=== PATIENT | female | born 1985 | race Caucasian/White ===

== ENCOUNTER 2017-02-10 20:01 | Inpatient (IN) | payer MEDICARE ==
[~2017-02-10 20:01] MED LIST: QUET200 PO
[2017-02-10 20:18] VITALS: BP 113/60; PULSE 86; RESP 16; TEMP 97; O2SAT 97
[2017-02-10 21:30] LABS: BACTERIA, URINE MANY /hpf; BLOOD, URINE NEG (NEG); COMMENT (UR) CULTURE INDICATED; CULTURE IF INDICATED CULTURE INDICATED; GLUCOSE,URINE NEG (NEG); KETONE, URINE NEG (NEG); MUCUS URINE MOD /lpf (OCC); NITRITE,URINE NEG (NEG); SQUAMOUS EPITHELIAL CELL URINE 7 /hpf (0-5); TRANSITIONAL EPI CELLS, URINE <1 /hpf; URINE COLOR YELLOW (YELLW/STRAW)
[2017-02-10 21:35] LABS: AMPHETAMINE, URINE NEG (NEG); BARBITURATES, URINE NEG (NEG); COCAINE, URINE POS (NEG)
[2017-02-10 22:21] VITALS: BP 108/60; PULSE 89; RESP 16; O2SAT 98
[2017-02-10 23:39] LABS: AUTOMATED NEUTROPHIL # 7.6 TH/MM3 (1.8-7.7); BASOPHIL % 0.2 % (0.0-2.0); EOSINOPHIL % 0.3 % (0.0-4.0); HEMO FLAGS DIFF FINAL; LYMPH % 21.1 % (9.0-44.0); LYMPHOCYTE # 2.3 TH/MM3 (1.0-4.8); MEAN CELL VOLUME 87.6 FL (80.0-100.0); MEAN CORPUSCULAR HEMOGLOBIN 29.5 PG (27.0-34.0); MEAN CORPUSCULAR HGB CONC 33.7 % (32.0-36.0); NEUT % 70.4 % (16.0-70.0); PLATELET COUNT 208 TH/MM3 (150-450); RED BLOOD COUNT 4.11 MIL/MM3 (4.00-5.30); RED CELL DISTRIBUTION WIDTH 13.9 % (11.6-17.2); WHITE BLOOD COUNT 10.8 TH/MM3 (4.0-11.0)
[2017-02-10] MEDS: CEPHALEXIN MONOHYDRATE 500 MG CAP PO SCH (23:45)
--- NOTE | 2017-02-10 23:45 | PD ---
HPI Chief Complaint: GI Complaint Time Seen by Provider: 22:01 Travel History International Travel<30 days: No Contact w/Intl Traveler<30days: No Traveled to known affect area: No History of Present Illness HPI 31-year-old female presents the emergency department for evaluation of rectal bleeding. At least this is what she told EMS as well as the nursing staff. On my initial evaluation the patient states she is having some rectal bleeding but denies any abdominal pain nausea vomiting diarrhea or weakness. She states that she is here because she wants to see psychiatry. Patient is adamantly refusing rectal exam at this time. She does have a long psychiatric history schizoaffective disorder. She will not expound her psychiatric concerns further with me. PFSH Past Medical History Hx Anticoagulant Therapy: No ADHD: Yes Autoimmune Disease: No Bipolar Disorder: Yes Anxiety: Yes Depression: Yes Chemotherapy: No Cerebrovascular Accident: No Diminished Hearing: No Endocrine: No Gastrointestinal Disorders: Yes GERD: Yes Genitourinary: Yes Immune Disorder: No Implanted Vascular Access Dvce: No Musculoskeletal: No Neurologic: No Reproductive: No Respiratory: No Immunizations Current: No Schizophrenia: Yes PNEUMOCCOCAL Vaccine (Year): 2 ?: Not Menopausal: No : 3 Para: 3 Past Surgical History Section: Yes (1) Gynecologic Surgery: Yes (C-SEC) Hysterectomy: No Social History Alcohol Use: No Tobacco Use: No Substance Use: Yes (+cocaine on admit) Allergies-Medications (Allergen,Severity, Reaction): Coded Allergies: Haldol (Verified Allergy, Severe, TONGUE SWELLS,DIFFICULTY SWALLOWING,JAW LOCKS, 02/10/17) Lamictal (Verified Allergy, Severe, 02/10/17) Paxil (Verified Allergy, Severe, 02/10/17) Reported Meds & Prescriptions Reported Meds & Active Scripts Active Quetiapine Fumarate 200 Mg Tab 400 Mg PO BID 15 Days Review of Systems Except as stated in HPI: all other systems reviewed are Neg Physical Exam Narrative GENERAL: Well-developed well-nourished no apparent distress. Sleeping soundly arouses easily. SKIN: Focused skin assessment warm/dry. HEAD: Atraumatic. Normocephalic. EYES: Pupils equal and round. No scleral icterus. No injection or drainage. ENT: No nasal bleeding or discharge. Mucous membranes pink and moist. NECK: Trachea midline. No JVD. CARDIOVASCULAR: Regular rate and rhythm. No murmur appreciated. RESPIRATORY: No accessory muscle use. Clear to auscultation. Breath sounds equal bilaterally. GASTROINTESTINAL: Abdomen soft, non-tender, nondistended. Hepatic and splenic margins not palpable. MUSCULOSKELETAL: No obvious deformities. No clubbing. No cyanosis. No edema. NEUROLOGICAL: Awake and alert. No obvious cranial nerve deficits. Motor grossly within normal limits. Normal speech. PSYCHIATRIC: Withdrawn, reluctant to give history. Data Data Last Documented VS Vital Signs Date Time Temp Pulse Resp B/P Pulse Ox O2 Delivery O2 Flow Rate FiO2 02/10/17 22:21 89 16 108/60 98 Room Air 02/10/17 20:18 97.0 Orders Ed Urine Pregnancytest Poc (02/10/17 20:55) Urinalysis - C+S If Indicated (02/10/17 20:55) Drug Screen, Random Urine (02/10/17 20:55) Urine Culture (02/10/17 20:55) Complete Blood Count With Diff (02/10/17 22:18) Comprehensive Metabolic Panel (02/10/17 22:18) Psych Screen (02/10/17 22:18) Alcohol (Ethanol) (02/10/17 22:18) Salicylates (Aspirin) (02/10/17 22:18) Tylenol (Acetaminophen) (02/10/17 22:18) Cephalexin (Keflex) (02/10/17 23:45) Labs Laboratory Tests Test 02/10/17 02/10/17 20:55 23:20 Urine Color YELLOW Urine Turbidity HAZY Urine pH 6.0 Urine Specific [place] 1.019 Urine Protein TRACE mg/dL Urine Glucose (UA) NEG mg/dL Urine Ketones NEG mg/dL Urine Occult Blood NEG Urine Nitrite NEG Urine Bilirubin NEG Urine Urobilinogen 8.0 MG/DL Urine Leukocyte Esterase LARGE Urine RBC 3 /hpf Urine WBC 80 /hpf Urine Squamous Epithelial 7 /hpf Cells Urine Transitional Epithelial <1 /hpf Cells Urine Bacteria MANY /hpf Urine Mucus MOD /lpf Microscopic Urinalysis Comment CULTURE INDICATED Urine Opiates Screen NEG Urine Barbiturates Screen NEG Urine Amphetamines Screen NEG Urine Benzodiazepines Screen NEG Urine Cocaine Screen POS Urine Cannabinoids Screen NEG White Blood Count 10.8 TH/MM3 Red Blood Count 4.11 MIL/MM3 Hemoglobin 12.1 GM/DL Hematocrit 36.0 % Mean Corpuscular Volume 87.6 FL Mean Corpuscular Hemoglobin 29.5 PG Mean Corpuscular Hemoglobin 33.7 % Concent Red Cell Distribution Width 13.9 % Platelet Count 208 TH/MM3 Mean Platelet Volume 8.1 FL Neutrophils (%) (Auto) 70.4 % Lymphocytes (%) (Auto) 21.1 % Monocytes (%) (Auto) 8.0 % Eosinophils (%) (Auto) 0.3 % Basophils (%) (Auto) 0.2 % Neutrophils # (Auto) 7.6 TH/MM3 Lymphocytes # (Auto) 2.3 TH/MM3 Monocytes # (Auto) 0.9 TH/MM3 Eosinophils # (Auto) 0.0 TH/MM3 Basophils # (Auto) 0.0 TH/MM3 CBC Comment DIFF FINAL Differential Comment Salicylates Level LESS THAN 1.7 MG/DL Sodium Level 141 MEQ/L Potassium Level 3.5 MEQ/L Chloride Level 107 MEQ/L Carbon Dioxide Level 24.0 MEQ/L Anion Gap 10 MEQ/L Blood Urea Nitrogen 8 MG/DL Creatinine 0.76 MG/DL Estimat Glomerular Filtration 90 ML/MIN Rate Random Glucose 99 MG/DL Calcium Level 7.9 MG/DL Total Bilirubin 0.4 MG/DL Aspartate Amino Transf LESS THAN 3 U/L (AST/SGOT) Alanine Aminotransferase 11 U/L (ALT/SGPT) Alkaline Phosphatase 88 U/L Total Protein 6.2 GM/DL Albumin 2.7 GM/DL Acetaminophen Level LESS THAN 2.0 MCG/ML Ethyl Alcohol Level LESS THAN 3 MG/DL MDM Medical Decision Making Medical Screen Exam Complete: Yes Emergency Medical Condition: Yes Differential Diagnosis Rectal bleeding, anemia, psychiatric illness. Narrative Course Patient 31-year-old female presents emergency department for rectal bleeding and evaluation for psychiatry. Patient is adamantly refusing a rectal exam at this time. I cannot force the patient to have a rectal exam and she declines. She would like to see psychiatry. She will not tell me why. She is here in a voluntary status at this time. She does not meet Garcia act criteria. She is medically stable for psychiatric evaluation and disposition. She does have incidental finding of urinary tract infection and I placed on Keflex 500 mg every 6 hours for 5 days. Patient has no physical exam findings warrant further emergent workup at this time. Diagnosis Primary Impression: Rectal bleeding Additional Impression: Schizoaffective disorder Condition: Stable Abram Delatorre MD Feb 10, 2017 23:45
[2017-02-10 23:59] LABS: ANION GAP 10 MEQ/L (5-15)
[2017-02-11 00:02] LABS: ACETAMINOPHEN LESS THAN 2.0 MCG/ML (10.0-30.0); ALKALINE PHOSPHATASE 88 U/L (45-117); ALT (GPT) 11 U/L (10-53); AST (GOT) LESS THAN 3 U/L (15-37); BLOOD UREA NITROGEN 8 MG/DL (7-18); CHLORIDE 107 MEQ/L (98-107); GLOMERULAR FILTRATION RATE 90 ML/MIN (>89); POTASSIUM 3.5 MEQ/L (3.5-5.1); SODIUM (NA) 141 MEQ/L (136-145); TOTAL BILIRUBIN ADULT 0.4 MG/DL (0.2-1.0)
[2017-02-11 00:58] VITALS: BP 107/60; PULSE 105; RESP 18; O2SAT 97
[2017-02-11 02:00] VITALS: BP 118/56; PULSE 90; RESP 18; O2SAT 96
[2017-02-11] MEDS: CEPHALEXIN MONOHYDRATE 500 MG CAP PO SCH ×3 (06:32→23:45)
[2017-02-11 06:42] VITALS: BP 119/61; PULSE 82; RESP 19; O2SAT 96
[2017-02-11] MEDS ORDERED: ACETAMINOPHEN 325 MG TAB PO ONE (09:45)
[2017-02-11 11:54] VITALS: BP 117/72; PULSE 86; RESP 18; O2SAT 95
[2017-02-11] MEDS ORDERED: OLANZapine 10 MG TAB PO ONE (12:00)
--- NOTE | 2017-02-11 15:31 | PD ---
History of Present Illness Chief Complaint: GI Complaint Time Seen by Provider: 15:00 Travel History International Travel<30 Days: No Contact w/Intl Traveler<30days: No Known affected area: No Legal Status Legal Status: Voluntary History of Present Illness: History of Present Illness HPI 31-year-old female with history of schizoaffective disorder as well as substance use disorder presents the emergency department on a voluntary basis for evaluation of rectal bleeding. She refused to allow ed providers to examine her and later states that she is here because she wants to see psychiatry. A psychiatric screen was ordered by ED. Patient's current toxicology is positive for cocaine . She has been monitored in J pod. She has episodes of yelling out " leave me alone". Patient has been medicated with Zyprexa but has continued to yell out at random times. Appears to be responding to internal stimuli. She is alert. She refuses to answer any questions at this time and states " I am here because I want to kill myself and I don't want to answer any questions because I am antisocial". Patient with a very angry affect. EMR is reviewed. this Patient is well known to [facility] psychiatric department. Her last psychiatric admission was in Jun 2016 under the care of Dr. Saravia. She has had a t least 10 previous admissions to [facility] . Lack of compliance with treatment after discharge as well as her continued substance use appear to significantly hinder her ability to maintain psychiatric stability. Remarks Patient will be placed under a BA at this time. PFSH Past Medical History Hx Anticoagulant Therapy: No ADHD: Yes Autoimmune Disease: No Bipolar Disorder: Yes Anxiety: Yes Depression: Yes Chemotherapy: No Cerebrovascular Accident: No Diminished Hearing: No Endocrine: No Gastrointestinal Disorders: Yes GERD: Yes Genitourinary: Yes Immune Disorder: No Implanted Vascular Access Dvce: No Musculoskeletal: No Neurologic: No Reproductive: No Respiratory: No Immunizations Current: No Schizophrenia: Yes PNEUMOCCOCAL Vaccine (Year): 2 ?: Not Menopausal: No : 3 Para: 3 Past Surgical History Section: Yes (1) Gynecologic Surgery: Yes (C-SEC) Hysterectomy: No Psychiatric History Psychiatric History Hx Psychiatric Treatment: PATIENT WAS LAST ADMITTED TO [facility] FROM 07/25/16 TO 08/05/16 FOR SCHIZOAFFECTIVE DISORDER. Possibly not following up with [facility] History of Inpatient Treatment: Yes (Multiple admissions) Guns or firearms in home: No Social History from record patient is homeless. No other information is obtained. Hx Alcohol Use: No Hx Tobacco Use: No Hx Substance Use: Yes Substance Use Type: Cocaine Other Substances Used: LONG HISTORY OF POLYSUBSTANCE ABUSE Hx of Substance Use Treatment: Yes Family Psychiatric History unable to obtain. Allergies-Medications (Allergen,Severity, Reaction): Coded Allergies: Haldol (Verified Allergy, Severe, TONGUE SWELLS,DIFFICULTY SWALLOWING,JAW LOCKS, 02/10/17) Lamictal (Verified Allergy, Severe, 02/10/17) Paxil (Verified Allergy, Severe, 02/10/17) Reported Meds & Prescriptions Reported Meds & Active Scripts Active Quetiapine Fumarate 200 Mg Tab 400 Mg PO BID 15 Days Review of Systems ROS Limitations: Uncooperative, Psychotic Exam Exam Limitations: Uncooperative, Refused, Psychotic Alert: Yes Mood: Agitated Affect: Other (angry ) Speech: Clear Eye Contact: None Memory Intact: Comment (unable to evaluate) Hallucinations: Auditory (reponding to internal stimuli) Delusions: Yes (posssibly but unable to evaluate) Suicidal: Ideation (reports she is sucidal ) Insight/Judgement poor. Impaired MDM Medical Decision Making Medical Record Reviewed: Yes Assessment/Plan 31 year old female with history of schizoaffective disorder as well as substance use disorder who presents to ED requesting an examination for complaints of rectal bleeding as well as requesting psychiatric evaluation. Patient has refused both physical exam as well as psychiatric exam. She has been responding to internal stimuli and has been yelling loudly while in J pod. At this time the patient will be placed under a bA and it is recommended that she be admitted to inpatient psychiatric unit for further evaluation, stabilization and initiation of psychiatric medications. Case discussed with Dr. Saravia for admission. Orders Ed Urine Pregnancytest Poc (02/10/17 20:55) Urinalysis - C+S If Indicated (02/10/17 20:55) Drug Screen, Random Urine (02/10/17 20:55) Urine Culture (02/10/17 20:55) Complete Blood Count With Diff (02/10/17 22:18) Comprehensive Metabolic Panel (02/10/17 22:18) Psych Screen (02/10/17 22:18) Alcohol (Ethanol) (02/10/17 22:18) Salicylates (Aspirin) (02/10/17 22:18) Tylenol (Acetaminophen) (02/10/17 22:18) Cephalexin (Keflex) (02/10/17 23:45) Diet Regular Basic (02/11/17 Breakfast) Diet Regular Basic (02/11/17 Lunch) Acetaminophen (Tylenol) (02/11/17 09:45) Olanzapine (Zyprexa) (02/11/17 12:00) Diet Regular Basic (02/11/17 Dinner) Results Vital Signs Date Time Temp Pulse Resp B/P Pulse Ox O2 Delivery O2 Flow Rate FiO2 02/11/17 11:54 86 18 117/72 95 Room Air 02/11/17 06:42 82 19 119/61 96 Room Air 02/11/17 02:00 90 18 118/56 96 Room Air 02/11/17 00:58 105 18 107/60 97 Room Air 02/10/17 22:21 89 16 108/60 98 Room Air 02/10/17 22:17 18 02/10/17 20:18 97.0 86 16 113/60 97 Laboratory Tests Test 02/10/17 02/10/17 20:55 23:20 Urine Opiates Screen NEG Urine Barbiturates Screen NEG Urine Amphetamines Screen NEG Urine Benzodiazepines Screen NEG Urine Cocaine Screen POS Urine Cannabinoids Screen NEG Urine Color YELLOW Urine Turbidity HAZY Urine pH 6.0 Urine Specific [place] 1.019 Urine Protein TRACE Urine Glucose (UA) NEG Urine Ketones NEG Urine Occult Blood NEG Urine Nitrite NEG Urine Bilirubin NEG Urine Urobilinogen 8.0 Urine Leukocyte Esterase LARGE Urine RBC 3 Urine WBC 80 Urine Squamous Epithelial 7 Cells Urine Transitional Epithelial <1 Cells Urine Bacteria MANY Urine Mucus MOD Microscopic Urinalysis Comment CULTURE INDICATED White Blood Count 10.8 Red Blood Count 4.11 Hemoglobin 12.1 Hematocrit 36.0 Mean Corpuscular Volume 87.6 Mean Corpuscular Hemoglobin 29.5 Mean Corpuscular Hemoglobin 33.7 Concent Red Cell Distribution Width 13.9 Platelet Count 208 Mean Platelet Volume 8.1 Neutrophils (%) (Auto) 70.4 Lymphocytes (%) (Auto) 21.1 Monocytes (%) (Auto) 8.0 Eosinophils (%) (Auto) 0.3 Basophils (%) (Auto) 0.2 Neutrophils # (Auto) 7.6 Lymphocytes # (Auto) 2.3 Monocytes # (Auto) 0.9 Eosinophils # (Auto) 0.0 Basophils # (Auto) 0.0 CBC Comment DIFF FINAL Differential Comment Salicylates Level LESS THAN 1.7 Sodium Level 141 Potassium Level 3.5 Chloride Level 107 Carbon Dioxide Level 24.0 Anion Gap 10 Blood Urea Nitrogen 8 Creatinine 0.76 Estimat Glomerular Filtration 90 Rate Random Glucose 99 Calcium Level 7.9 Total Bilirubin 0.4 Aspartate Amino Transf LESS THAN 3 (AST/SGOT) Alanine Aminotransferase 11 (ALT/SGPT) Alkaline Phosphatase 88 Total Protein 6.2 Albumin 2.7 Acetaminophen Level LESS THAN 2.0 Ethyl Alcohol Level LESS THAN 3 Date/Time Procedure Status Source Growth 02/10/17 20:55 Urine Culture - Preliminary Resulted Urine Clean Catch Group D Enterococcus Diagnosis Primary Impression: Schizoaffective disorder Additional Impressions: Rectal bleeding Substance use disorder Admitting Information Admitting Physician Requests: Admit Condition: Stable Problem Qualifiers Primary Impression: Schizoaffective disorder Qualified Code: F25.0 - Schizoaffective disorder, bipolar type Kaci Hall Feb 11, 2017 15:31
[2017-02-11] MEDS ORDERED: ALUMINUM/MAGNESIUM/SIMETH 30 ML CUP PO PRN (16:00)
[2017-02-11] MEDS ORDERED: diphenhydrAMINE HCL 50 MG CAP PO PRN (16:00)
[2017-02-11] MEDS ORDERED: ACETAMINOPHEN 325 MG TAB PO PRN (16:00)
[2017-02-11] MEDS ORDERED: MAGNESIUM HYDROXIDE SUSP 30 ML CUP PO PRN (16:00)
[2017-02-11] MEDS ORDERED: LORazepam 2 MG/ML VIAL ONE (17:45)
[2017-02-11] MEDS ORDERED: diphenhydrAMINE HCL 50 MG/ML VIAL ONE (17:45)
[2017-02-11] MEDS ORDERED: OLANZapine IM 10 MG VIAL IM ONE ×3 (17:45→22:00)
[2017-02-11] MEDS ORDERED: diphenhydrAMINE HCL 50 MG/ML VIAL IM ONE ×2 (18:15→22:00)
[2017-02-11] MEDS ORDERED: LORazepam 2 MG/ML VIAL IM ONE ×2 (18:15→22:00)
[2017-02-12] MEDS: CEPHALEXIN MONOHYDRATE 500 MG CAP PO SCH ×4 (05:45→23:45)
[2017-02-12] MEDS ORDERED: LORazepam 2 MG/ML VIAL ONE (10:11)
[2017-02-12] MEDS ORDERED: diphenhydrAMINE HCL 50 MG/ML VIAL ONE (10:11)
[2017-02-12] MEDS ORDERED: ZIPRASIDONE MESYLATE 20 MG VIAL IM STA (10:35)
--- NOTE | 2017-02-12 10:36 | HHI.HP ---
Provisional Diagnosis Admission Date Feb 11, 2017 at 15:51 [place] I. 1. Schizoaffective disorder, bipolar type, acute decompensation Rule out component of drug induced psychosis 2. Cocaine dependence [place] II. Deferred [place] V. GAF is 15 presently Certification of Person's Competence To Provide Express and Informed Consent I have personally examined Janine Gilliland , a person being served at [facility] on, Feb 12, 2017 10:36. Express and informed consent means consent voluntarily given in writing, by a competent person, after sufficient explanation and disclosure of the subject matter involved to enable the person to make a knowing and willful decision without any element of force, fraud, deceit, duress, or other form of constraint or coercion. This person is 18 years of age or older, is not now known to be incompetent to consent to treatment with a guardian advocate, and does not have a health care surrogate or proxy currently making medical treatment decisions. I have found this person to be one of the following: [] Competent to provide express and informed consent, as defined above, for voluntary admission to this facility and is competent to provide express and informed consent for treatment. He/she has the consistent capacity to make well reasoned, willful, and knowing decisions concerning his or her medical or mental health treatment. The person fully and consistently understands the purpose of the admission for examination/placement and is fully capable of personally exercising all rights [place] [x] Incompetent to provide express and informed consent to voluntary admission, and this is incompetent to provide express and informed consent to treatment. The person must be transferred to involuntary status and a petition for a guardian advocate filed with the Circuit Court. [] Refusing to provide express and informed consent to voluntary admission but is competent to provide express and informed consent for treatment. The person must be discharged or transferred to involuntary status. Form shall be completed within 24 hours of a person's arrival at the receiving facility and filed in the clinical record of each person: 1. Admitted on a voluntary basis 2. Permitted to provide express and informed consent to his/her own treatment 3. Allowed to transfer from involuntary to voluntary status 4. Prior to permitting a person to consent to his or her own treatment after having been previously found incompetent to consent to treatment. History of Present Illness Capacity: Lacks Capacity HPI Ms. Gilliland is a 31-year-old female with a history of schizoaffective disorder and cocaine use disorder who presented voluntarily to the emergency department with complaints of rectal bleeding but then refused examination. Patient was referred to the psychiatric nurse practitioner in the emergency department for psychiatric evaluation, and the nurse practitioner placed the patient under the Garcia act. Patient is well known to the psychiatric service here from multiple prior psychiatric admissions and ED visits. Reviewing the electronic medical record, I see the patient was admitted most recently under my care in June/July of last year, and she left AGAINST MEDICAL ADVICE at that time. Patient's urine toxicology is once again positive for cocaine on presentation here. Patient seen and examined with counselor. Chart reviewed. Case discussed with nursing staff who reports that the patient was acutely agitated yesterday requiring Zyprexa ETO. She remains agitated this morning. She can be heard screaming on the unit from the nursing station. On my evaluation, the patient presents as internally stimulated and psychomotor agitated. She screams that she wants to be sent to the [facility] because she can smoke there. Her thought process is fairly disorganized. She says that she came into the hospital because she was "bleeding to " but refuses evaluation for this problem now. She says "I'm homeless on the [address] and I gotta go somewhere." She rambles about "a or a black kid." Affect is intensely dysphoric. It is difficult to discern underlying delusional material because of her degree of thought disorder at this time.'s psychiatric interview is limited because of her degree of psychotic decompensation at this time. Patient becomes increasingly agitated during the course of the interview and resumes screaming loudly I have ordered her medicated with Geodon, Ativan and Benadryl ETO. I am unable to obtain any past psychiatric, family, chemical dependency or social history from the patient directly at this time because of her degree of psychiatric impairment. Review of Systems ROS Limitations: Uncooperative, Psychotic, Poor Historian Other Unable to obtain meaningful ROS because of degree of psychotic impairment Past Psych History Psychological trauma history Unable to obtain because of degree of psychiatric impairment Violence risk - others (6 mos) Elevated. Patient is acutely agitated. Violence risk - self (6 mos) Elevated. Patient is psychotic and unpredictable. Substance Abuse History Drugs/Alcohol past 12 months Patient has history of cocaine dependence and her urine toxicology is presently positive for cocaine. Past Family Social History Coded Allergies: Haldol (Verified Allergy, Severe, TONGUE SWELLS,DIFFICULTY SWALLOWING,JAW LOCKS, 02/10/17) Lamictal (Verified Allergy, Severe, 02/10/17) Paxil (Verified Allergy, Severe, 02/10/17) Past Medical History See electronic medical record Active Scripts Quetiapine Fumarate 200 Mg [id number] Mg PO BID 15 Days Ref 1 Prov:Shankar Saravia MD 08/05/16 Current Medications Medications (Trade) Dose Ordered Sig/Lisa Route Start Time Stop Time Status Last Admin (Keflex) 500 mg Q6H PO 02/10/17 23:45 02/11/17 10:02 (Benadryl) 50 mg HS PRN PO 02/11/17 16:00 (Tylenol) 650 mg Q4H PRN PO 02/11/17 16:00 (Milk Of Magnesia Liq) 30 ml DAILY PRN PO 02/11/17 16:00 (Mag-Al Plus Susp Liq) 30 ml Q6H PRN PO 02/11/17 16:00 Family History Unable to obtain Social History Unable to obtain Patient's Strengths (min. 2) In a monitored setting. Verbally fluent. Physical Exam Physical examination completed by ED provider. On my examination today, patient is disheveled but otherwise well-developed and in no acute physical distress. She has psychomotor agitated but otherwise no motoric abnormalities are noted. Laboratories and vital signs reviewed: Vital Signs Vital Signs Date Time Temp Pulse Resp B/P Pulse Ox O2 Delivery O2 Flow Rate FiO2 02/11/17 11:54 86 18 117/72 95 Room Air 02/10/17 20:18 97.0 Lab Results Item Value Date Time White Blood Count 10.8 TH/MM3 02/10/170 Hemoglobin 12.1 GM/DL 02/10/170 Platelet Count 208 TH/MM3 02/10/170 Sodium Level 141 MEQ/L 02/10/17 2320 Potassium Level 3.5 MEQ/L 02/10/17 2320 Chloride Level 107 MEQ/L 02/10/17 2320 Carbon Dioxide Level 24.0 MEQ/L 02/10/17 2320 Blood Urea Nitrogen 8 MG/DL 02/10/17 2320 Creatinine 0.76 MG/DL 02/10/170 Random Glucose 99 MG/DL 02/10/170 Estimat Glomerular Filtration Rate 90 ML/MIN 02/10/17 2320 Aspartate Amino Transf (AST/SGOT) LESS THAN 3 U/L L 02/10/17 2320 Alanine Aminotransferase (ALT/SGPT) 11 U/L 02/10/170 Alkaline Phosphatase 88 U/L 02/10/17 232 Urine Cocaine Screen POS H 02/10/172054 Urinalysis concerning for UTI and urine culture is growing out group D enterococcus with sensitivities pending. Mental Status Examination Patient is in hospital gown. She is disheveled. She is awake and alert and oriented to person and hospital at least. She is psychomotor agitated. Speech is rambling, inappropriately loud and somewhat pressured. Language and fund of knowledge are difficult to discern because of her degree of thought disorder. Mood and affect her intensely dysphoric. Thought process disorganized. Associations loose. Difficult to ascertain whether there is underlying delusional material. She is frankly internally stimulated. She does not verbalize any suicidal or homicidal ideation but is unreliable to contract for safety in her present state. Insight and judgment are poor. Assessment & Plan Problem List: (1) Schizoaffective disorder, bipolar type ICD Code: F25.0 (2) Cocaine dependence ICD Code: F14.20 Assessment & Plan This is a 31-year-old female with psychiatric history as detailed above admitted to the inpatient psychiatric unit under a Garcia act. On my examination today, patient appears to be experiencing a severe, psychotic decompensation, possibly with contributions from drug induced psychotic disorder from her cocaine use. She also appears to have a UTI. Given her degree of psychiatric decompensation, I trial court judge the patient presently requires psychiatric hospitalization for safety, observation and stabilization. Admit inpatient. Involuntary status. I have completed first opinion. Consult for second opinion. Request healthcare surrogate and guardian advocate. Consult to the hospitalist for management of patient's UTI and also to follow- up patient's presenting complaint of rectal bleeding if patient is willing to undergo examination. I will continue Cipro for the UTI as ordered pending sensitivities. Regarding the choice of antipsychotic, patient has a listed allergy to Haldol. Reviewing the chart it appears that she has had a poor response to Risperdal in the past and I don't suspect that her response to paliperidone would be much better. I think an agent with a corresponding long- acting injectable is desirable here. I will start Abilify 10 mg daily with plans to titrate to effect. Geodon as needed for agitation, Ativan as needed for anxiety, Cogentin as needed for EPS, Ambien as needed for sleep. Vitals every shift. Counselor to see. Disposition planning. Estimated length of stay : 7-9 days, longer if placement is necessary. Discharge Planning Pending psychiatric stabilization Request HC Surrog/Guard Advoc?: Yes Problem Qualifiers (1) Cocaine dependence: Qualified Code: F14.20 - Cocaine dependence without complication Shankar Saravia MD Feb 12, 2017 10:36
[2017-02-12] MEDS ORDERED: BENZTROPINE MESYLATE 2 MG/2 ML VIAL IM PRN (11:15)
[2017-02-12] MEDS ORDERED: NICOTINE 4 MG/GUM CHEW PRN (11:15)
[2017-02-12] MEDS ORDERED: ZIPRASIDONE MESYLATE 20 MG VIAL IM PRN (11:15)
[2017-02-12] MEDS ORDERED: LORazepam 2 MG/ML VIAL IM PRN (11:15)
[2017-02-12] MEDS ORDERED: BENZTROPINE MESYLATE 1 MG TAB PO PRN (11:15)
[2017-02-12] MEDS ORDERED: ZOLPIDEM TARTRATE 5 MG TAB PO PRN (11:15)
[2017-02-12] MEDS ORDERED: LORazepam 2 MG TAB PO PRN (11:15)
--- NOTE | 2017-02-12 13:51 | PD.CONS ---
Provisional Diagnosis Admission Date Feb 11, 2017 at 15:51 [place] I. 1. Schizoaffective disorder, bipolar type, acute decompensation Rule out component of drug induced psychosis 2. Cocaine dependence [place] II. Deferred [place] V. GAF is 15 presently History of Present Illness Service Psychiatry Consult Requested By Primary Care Physician No Primary Care Physician HPI Dr. Saravia documentation""Ms. Gilliland is a 31-year-old female with a history of schizoaffective disorder and cocaine use disorder who presented voluntarily to the emergency department with complaints of rectal bleeding but then refused examination. Patient was referred to the psychiatric nurse practitioner in the emergency department for psychiatric evaluation, and the nurse practitioner placed the patient under the Garcia act. Patient is well known to the psychiatric service here from multiple prior psychiatric admissions and ED visits. Reviewing the electronic medical record, I see the patient was admitted most recently under my care in June/July of last year, and she left AGAINST MEDICAL ADVICE at that time. Patient's urine toxicology is once again positive for cocaine on presentation here.Patient seen and examined with counselor. Chart reviewed. Case discussed with nursing staff who reports that the patient was acutely agitated yesterday requiring Zyprexa ETO. She remains agitated this morning. She can be heard screaming on the unit from the nursing station. On my evaluation, the patient presents as internally stimulated and psychomotor agitated. She screams [facility]. Her thought process is fairly disorganized. She says that she came into the hospital because she was "bleeding to " but refuses evaluation for this problem now. She says "I'm homeless on the street and I gotta go somewhere." She rambles about "a or a black kid." Affect is intensely dysphoric. It is difficult to discern underlying delusional material because of her degree of thought disorder at this time.'s psychiatric interview is limited because of her degree of psychotic decompensation at this time. Patient becomes increasingly agitated during the course of the interview and resumes screaming loudly I have ordered her medicated with Geodon, Ativan and Benadryl ETO." Patient is seen for psychiatric evaluation and second opinion the 2700 unit, she is a 31 years old woman, self reported homeless, unemployed, psychiatric history of schizoaffective disorder, cocaine use disorder, well known by service, multiple psychiatric hospitalizations in the past, no compliant with medications. She seems to be very oppositional, cover completely with a blanket, stating that she needs to sleep and she is tired. Patient is guarded, isolated in the unit, not interacting with peers and staff. Patient is unable to provide any meaningful information for second opinion. She says that she came here because she was bleeding in her rectum, but she doesn't remember the reason she ended up in psychiatrist. Patient denies suicidal and homicidal ideation, she denies visual and auditory hallucinations. Nurses described her as disruptive, and so far it she had episodes of psychomotor agitation and hostility in the unit needing ETOs. Past Family Social History Coded Allergies: Haldol (Verified Allergy, Severe, TONGUE SWELLS,DIFFICULTY SWALLOWING,JAW LOCKS, 02/10/17) Lamictal (Verified Allergy, Severe, 02/10/17) Paxil (Verified Allergy, Severe, 02/10/17) Active Scripts Quetiapine Fumarate 200 Mg Rha147 Mg PO BID 15 Days Ref 1 Prov:Shankar Saravia MD 08/05/16 Current Medications Medications (Trade) Dose Ordered Sig/Lisa Route Start Time Stop Time Status Last Admin (Keflex) 500 mg Q6H PO 02/10/17 23:45 02/12/17 12:02 (Tylenol) 650 mg Q4H PRN PO 02/11/17 16:00 (Milk Of Magnesia Liq) 30 ml DAILY PRN PO 02/11/17 16:00 (Mag-Al Plus Susp Liq) 30 ml Q6H PRN PO 02/11/17 16:00 (Abilify) 10 mg DAILY PO 02/13/17 09:00 Future Hold (Geodon Inj) 20 mg BID PRN IM 02/12/17 11:15 Hold (Cogentin) 1 mg Q12HR PRN PO 02/12/17 11:15 Hold (Cogentin Inj) 1 mg Q12HR PRN IM 02/12/17 11:15 Hold (Ativan) 2 mg Q6H PRN PO 02/12/17 11:15 Hold (Ativan Inj) 2 mg Q6H PRN IM 02/12/17 11:15 Hold (Ambien) 5 mg HS PRN PO 4/20/17 11:15 Hold (Nicotine Gum) 4 mg Q1H PRN CHEW 02/12/17 11:15 Patient's Strengths (min. 2) In a monitored setting. Verbally fluent. Physical Exam Vital Signs Vital Signs Date Time Temp Pulse Resp B/P Pulse Ox O2 Delivery O2 Flow Rate FiO2 02/11/17 11:54 86 18 117/72 95 Room Air 02/10/17 20:18 97.0 Mental Status Examination Appearance Patient is covered with blankets while talking to me, superficially cooperative , irritable, oppositional Speech: Hesitant Orientation: Person Memory: Unremarkable Thought Process: Goal Directed Thought Content: Bizarre thinking Suicidal Ideation: No Previous Suicide Attempts: No Homicidal Ideation: No Previous Homicide Attempts: No Judgment: Poor Affect: Irritable Mood: Angry Motor Activity: Normal gait Assessment & Plan Problem List: (1) Schizoaffective disorder, bipolar type Assessment & Plan: I have seen and examined this patient, review carefully previous EMR documentation and I agree and concur with Dr. Saravia assessment and plan for this patient. ICD Code: F25.0 (2) Cocaine dependence ICD Code: F14.20 Assessment & Plan Estimated LOS: days Request HC Surrog/Guard Advoc?: Yes Problem Qualifiers (1) Cocaine dependence: Qualified Code: F14.20 - Cocaine dependence without complication Reggie Garcia MD Feb 12, 2017 13:51
--- NOTE | 2017-02-12 14:37 | PD.CONS ---
[facility] By [facility] Care Physician No Primary Care Physician Diagnoses: History of Present Illness 31-year-old female with long history of psychiatric issues, schizophrenia who presented with complaint of rectal bleeding, however refusing examination and requesting psychiatric evaluation. On my examination patient refuses exam. Says that she does not have any rectal bleeding but that she needs psychiatric care for "mental issues". Her answers to most questions are faint and largely inaudible. She does report burning with urination over the past week, but says she is not here for that. She denies any other pain. History is extremely difficult due to psychosis. History obtained from chart review. Review of Systems Unable to be performed secondary to psychosis. Past Family Social History Allergies: Coded Allergies: Haldol (Verified Allergy, Severe, TONGUE SWELLS,DIFFICULTY SWALLOWING,JAW LOCKS, 02/10/17) Lamictal (Verified Allergy, Severe, 02/10/17) Paxil (Verified Allergy, Severe, 02/10/17) Past Medical History Schizophrenia. GERD Past Surgical History Family History Attempted but no useful information due to psychosis Social History Attempted but no useful information due to psychosis. Patient is positive for cocaine on urine. Physical Exam Physical Exam GENERAL: This is a well-nourished, well-developed patient, in no apparent distress. Distracted speech. Speech is clear when patient wishes to communicate, otherwise mumbling at all other times. Patient seen with nurse present. Patient allows posterior lung auscultation which is normal without crackles or wheezes. No CVA tenderness. Further examination requested, however she refuses any other examination. Laboratory Date/Time Procedure Status Source Growth 02/10/17 20:55 Urine Culture - Preliminary Resulted Urine Clean Catch Group D Enterococcus Result Diagram: 02/10/17 2320 02/10/17 2320 Assessment and Plan Assessment and Plan //Psychosis/schizophrenia. As per psychiatry. //UTI. Group D enterococcus. Continue antibiotics as ordered. Follow up culture sensitivities. //Complaint of rectal bleeding. Nursing reports that patient says she is on her period, and they have not seen blood on previous exams. She doesn't give much useful history. Refuses exam. Hemoglobin appear stable. We'll continue to monitor. //Cocaine abuse. Patient gives no history regarding this. When psychiatrically stable will need further counseling. //Prophylaxis. Patient is ambulatory. Discussed Condition With Patient, nurse. Demario Garcia MD Feb 12, 2017 14:36
[2017-02-12 18:19] VITALS: BP 113/56; PULSE 88; RESP 18; TEMP 98.6
[2017-02-13] MEDS: CEPHALEXIN MONOHYDRATE 500 MG CAP PO SCH (05:25)
[2017-02-13 06:09] VITALS: BP 98/54; PULSE 85; RESP 16; TEMP 99; O2SAT 96
[2017-02-13] MEDS ORDERED: AMOXICILLIN (TRIHYDRATE) 500 MG CAP PO SCH (14:00)
[2017-02-13] MEDS ORDERED: AMPICILLIN 500 MG CAP PO SCH (14:00)
--- NOTE | 2017-02-13 14:47 | HHI.PR ---
Subjective Remarks Patient in room. Appears comfortable. Refusing history or exam. Objective Vital Signs Date Time Temp Pulse Resp B/P Pulse Ox O2 Delivery O2 Flow Rate FiO2 02/13/17 06:09 99.0 85 16 98/54 96 02/12/17 18:19 98.6 88 18 113/56 Result Diagram: 02/10/17231902/10/172319 Objective Remarks Refusing exam. A/P Assessment and Plan //Psychosis/schizophrenia. As per psychiatry. //UTI. Group D enterococcus. Sensitive to ampicillin. Continue oxacillin for 3 days. //Complaint of rectal bleeding. Nursing reports that patient says she is on her period, and they have not seen blood on previous exams. She doesn't give much useful history. Refuses exam. Hemoglobin appear stable. -Repeat CBC ordered and pending. //Cocaine abuse. Patient gives no history regarding this. When psychiatrically stable will need further counseling. Discharge Planning We'll sign off at this time. We will follow up on repeat CBC. Continue amoxicillin to complete treatment course for UTI. Please feel free to call us with any questions or reconsult if necessary. Demario Garcia MD Feb 13, 2017 14:47
[2017-02-13 17:40] VITALS: BP 111/55; PULSE 77; RESP 17; TEMP 99; O2SAT 97
[2017-02-13 17:57] LABS: AUTOMATED NEUTROPHIL # 1.8 TH/MM3 (1.8-7.7); BASOPHIL % 0.3 % (0.0-2.0); EOSINOPHIL # 0.2 TH/MM3 (0-0.4); EOSINOPHIL % 3.9 % (0.0-4.0); HEMATOCRIT 38.8 % (35.0-46.0); HEMO FLAGS DIFF FINAL; LYMPH % 39.2 % (9.0-44.0); LYMPHOCYTE # 1.6 TH/MM3 (1.0-4.8); MEAN CELL VOLUME 87.3 FL (80.0-100.0); MEAN CORPUSCULAR HEMOGLOBIN 28.8 PG (27.0-34.0); MONO % 13.2 % (0.0-8.0); NEUT % 43.4 % (16.0-70.0); PLATELET COUNT 218 TH/MM3 (150-450); RED BLOOD COUNT 4.44 MIL/MM3 (4.00-5.30); RED CELL DISTRIBUTION WIDTH 13.7 % (11.6-17.2); WHITE BLOOD COUNT 4.1 TH/MM3 (4.0-11.0)
[2017-02-13] MEDS: AMOXICILLIN (TRIHYDRATE) 250 MG CAP PO SCH (21:21)
[2017-02-13 21:28] VITALS: BP 111/55; PULSE 97; RESP 17; TEMP 99.1; O2SAT 97
[2017-02-14] MEDS: AMOXICILLIN (TRIHYDRATE) 250 MG CAP PO SCH ×3 (06:04→21:36)
[2017-02-14] MEDS ORDERED: OLANZapine IM 10 MG VIAL IM ONE ×2 (14:35→15:00)
[2017-02-14] MEDS ORDERED: LORazepam 2 MG/ML VIAL ONE (14:35)
[2017-02-14] MEDS ORDERED: diphenhydrAMINE HCL 50 MG/ML VIAL ONE (14:35)
[2017-02-14] MEDS ORDERED: LORazepam 2 MG/ML VIAL IM ONE (15:00)
[2017-02-14] MEDS ORDERED: diphenhydrAMINE HCL 50 MG/ML VIAL IM ONE (15:00)
--- NOTE | 2017-02-14 15:24 | HHI.PYPN ---
Subjective Remarks Patient was seen and case discussed with nursing. All of patient's medications are hold because nursing has not been able to get consents. Patient has received one ETO this afternoon for yelling and labile behavior. She is mildly sedated for this interview and remains very irritable and oppositional. She has poor insight to her mental health and her history. Admits to auditory hallucinations but would not tell me what they are saying. She denies suicidal ideation intent or plan. "Just leave me alone." Objective Alert: Yes [place]: Person Mood: Agitated Affect: Other (angry ) Memory Intact: Comment (unable to evaluate) Hallucinations: Auditory (reponding to internal stimuli) Delusions: Yes (posssibly but unable to evaluate) Delusion Type: Paranoid Suicidal: Ideation (denies suicidal ideation) Homicidal: Ideation (denies) Insight/Judgment Poor Labs Test 02/13/17 17:31 White Blood Count 4.1 TH/MM3 Red Blood Count 4.44 MIL/MM3 Hemoglobin 12.8 GM/DL Hematocrit 38.8 % Mean Corpuscular Volume 87.3 FL Mean Corpuscular Hemoglobin 28.8 PG Mean Corpuscular Hemoglobin 33.0 % Concent Red Cell Distribution Width 13.7 % Platelet Count 218 TH/MM3 Mean Platelet Volume 8.3 FL Neutrophils (%) (Auto) 43.4 % Lymphocytes (%) (Auto) 39.2 % Monocytes (%) (Auto) 13.2 % Eosinophils (%) (Auto) 3.9 % Basophils (%) (Auto) 0.3 % Neutrophils # (Auto) 1.8 TH/MM3 Lymphocytes # (Auto) 1.6 TH/MM3 Monocytes # (Auto) 0.5 TH/MM3 Eosinophils # (Auto) 0.2 TH/MM3 Basophils # (Auto) 0.0 TH/MM3 CBC Comment DIFF FINAL Differential Comment Date/Time Procedure Status Source Growth 02/10/17 20:55 Urine Culture - Final Complete Urine Clean Catch Enterococcus Faecalis Vitals/IOs Vital Signs Date Time Temp Pulse Resp B/P Pulse Ox O2 Delivery O2 Flow Rate FiO2 02/13/17 21:28 99.1 97 17 111/55 97 02/11/17 11:54 Room Air Assessment & Plan Problem List: (1) Schizoaffective disorder, bipolar type ICD Code: F25.0 (2) Cocaine dependence ICD Code: F14.20 Assessment & Plan Continue working on consents for medication Justification for Cont. Inpt. Patient will decompensate in a less restrictive setting Request HC Surrog/Guard Advoc?: Yes Problem Qualifiers (1) Cocaine dependence: Qualified Code: F14.20 - Cocaine dependence without complication John Calderon DO Feb 14, 2017 15:24
[2017-02-14 18:07] VITALS: BP 108/52; PULSE 69; RESP 18; TEMP 98.2; O2SAT 98
[2017-02-15] MEDS: AMOXICILLIN (TRIHYDRATE) 250 MG CAP PO SCH ×3 (05:41→22:00)
[2017-02-15 05:54] VITALS: BP 90/50; PULSE 70; RESP 16; TEMP 99.1; O2SAT 95
--- NOTE | 2017-02-15 14:55 | HHI.PYPN ---
Subjective Remarks Patient was seen and case discussed with nursing. Initially patient is talkative and is perseverant on discharge. When she finds out that she would not be discharged by me today she starts insulting myself and nursing asking us to leave the room. She has been witnessed talking to herself despite denying psychotic symptoms. "I'm perfectly fine, don't talk to me, just leave me alone. " No consents so is not on medications at this time Objective Alert: Yes [place]: Person Mood: Agitated Affect: Restricted Memory Intact: Comment (unable to evaluate) Hallucinations: Auditory Delusions: Yes (posssibly but unable to evaluate) Delusion Type: Paranoid Suicidal: Ideation (denies suicidal ideation) Homicidal: Ideation (denies) Insight/Judgment poor Labs Date/Time Procedure Status Source Growth 02/10/17 20:55 Urine Culture - Final Complete Urine Clean Catch Enterococcus Faecalis Vitals/IOs Vital Signs Date Time Temp Pulse Resp B/P Pulse Ox O2 Delivery O2 Flow Rate FiO2 02/15/17 05:54 99.1 70 16 90/50 95 02/11/17 11:54 Room Air Assessment & Plan Problem List: (1) Schizoaffective disorder, bipolar type ICD Code: F25.0 (2) Cocaine dependence ICD Code: F14.20 Assessment & Plan Patient will decompensate in a less restrictive setting Justification for Cont. Inpt. Patient will decompensate in a less restrictive setting Request HC Surrog/Guard Advoc?: Yes Problem Qualifiers (1) Cocaine dependence: Qualified Code: F14.20 - Cocaine dependence without complication John Calderon DO Feb 15, 2017 14:54
[2017-02-15 15:19] VITALS: BP 114/66; PULSE 85; RESP 18; TEMP 98.7; O2SAT 96
[2017-02-15 16:01] VITALS: BP 110/73; PULSE 68; RESP 18; TEMP 99; O2SAT 100
[2017-02-16 06:09] VITALS: BP 106/54; PULSE 75; RESP 17; TEMP 98.7; O2SAT 98
--- NOTE | 2017-02-16 11:29 | HHI.PYPN ---
Subjective Remarks Patient seen and examined with counselor and nurse. Chart reviewed. Case discussed with nursing staff who reports that the patient has been walking around on the unit and is somewhat sexually preoccupied. Counselor reports that the patient may return to the alf setting once stabilized. On my examination today, the patient says that she had a "boring weekend." She insists that she came into the hospital not for psychiatric problems but rather because she was having "hurting out of my hiney," although she has refused any evaluation for this. She is agreeable to remaining on the inpatient psychiatric unit for a few more days to allow us to start a medication, although these have been held secondary to lack of consent. She would like to try Abilify and Depakote. Review of Systems ROS Limitations: Poor Historian Except as stated in HPI: all other systems reviewed are Neg Objective Alert: Yes [place]: Person, Place Mood: Other (calmer today) Affect: Blunted Memory Intact: Comment (not formally assessed) Hallucinations: Other (no reported AVH but does appear to be responding to internal stimuli) Delusions: No Delusion Type: Other (no delusions elicited) Suicidal: Ideation (no SI) Homicidal: Ideation (no HI) Insight/Judgment Poor Remarks No motor abnormalities. Speech within normal limits for rate, tone and volume. Labs Labs reviewed. No new labs. Vitals/IOs Vital Signs Date Time Temp Pulse Resp B/P Pulse Ox O2 Delivery O2 Flow Rate FiO2 02/16/17 06:09 98.7 75 17 106/54 98 Assessment & Plan Problem List: (1) Schizoaffective disorder, bipolar type ICD Code: F25.0 (2) Cocaine dependence ICD Code: F14.20 Assessment & Plan Patient may consent for meds. Abilify 10 mg daily with tentative plan for long- acting injectable Abilify. Initiate Depakote 500 mg twice daily per patient preference. LFTs and platelets okay. ED [id number] test negative. Plan to check a level after the appropriate interval. Continue to monitor on the high acuity unit. Continue other medications and care as ordered. Justification for Cont. Inpt. Medication changes in process. Discharge Planning Hopeful for transfer to alf by the middle of the week. Request HC Surrog/Guard Advoc?: Yes Problem Qualifiers (1) Cocaine dependence: Qualified Code: F14.20 - Cocaine dependence without complication Shankar Saravia MD Feb 16, 2017 11:29
[2017-02-16 18:19] VITALS: BP 105/55; PULSE 65; RESP 18; TEMP 99.3; O2SAT 97
[2017-02-16] MEDS: DIVALPROEX DR 500 MG TABEC PO SCH (21:03)
[2017-02-17 06:00] VITALS: BP 122/66; PULSE 66; RESP 16; TEMP 99; O2SAT 99
[2017-02-17] MEDS: ARIPiprazole 10 MG TAB PO SCH (09:00)
[2017-02-17] MEDS: DIVALPROEX DR 500 MG TABEC PO SCH ×2 (09:00→20:02)
--- NOTE | 2017-02-17 11:17 | HHI.PYPN ---
Subjective Remarks Patient seen and examined with counselor and nurse. Chart reviewed. Patient gave consent for psychotropics and is due to start her Abilify today. Case discussed in treatment team with counselor, nurse and occupational therapist. No significant behavioral issues noted. On my examination today, patient is calm and appropriate in conversation. She is eager for discharge to care home at the first opportunity but is agreeable to remaining on the inpatient unit for a few days to allow for resumption of psychotropic medications. She denies any suicidal ideation. Denies any audiovisual hallucinations. We discussed long-acting Abilify, and she is agreeable to this. Denies side effects from medications. Review of Systems Except as stated in HPI: all other systems reviewed are Neg Objective Alert: Yes [place]: Person, Place Mood: Calm Affect: Blunted Memory Intact: Comment (not formally assessed) Hallucinations: Other (denies AVH) Delusions: No Delusion Type: Other (no evident delusions) Suicidal: Ideation (no SI) Homicidal: Ideation (no HI) Insight/Judgment Poor but perhaps improving Remarks Patient is rocking back and forth, and this is typical of her baseline. No other motoric abnormalities noted. Thought process fairly linear today. Speech coherent and logical. Labs Labs reviewed. Vitals/IOs Vital Signs Date Time Temp Pulse Resp B/P Pulse Ox O2 Delivery O2 Flow Rate FiO2 02/17/17 06:00 99.0 66 16 122/66 99 Assessment & Plan Problem List: (1) Schizoaffective disorder, bipolar type ICD Code: F25.0 (2) Cocaine dependence ICD Code: F14.20 Assessment & Plan Continue oral Abilify. If well tolerated, could consider long-acting Abilify Maintena. Continue Depakote. Plan to check a level after the appropriate interval. Continue to monitor on the inpatient unit. Continue other medications and care as ordered. Justification for Cont. Inpt. Medication changes planned. High risk for decompensation pending resumption of medications. Discharge Planning Barring some clinical worsening, it is my hope that the patient will be ready for discharge to care home by the end of the week, ideally by . Request HC Surrog/Guard Advoc?: Yes Problem Qualifiers (1) Cocaine dependence: Qualified Code: F14.20 - Cocaine dependence without complication Shankar Saravia MD Feb 17, 2017 11:17
[2017-02-18 06:33] VITALS: BP 122/68; PULSE 74; RESP 20; TEMP 97.5; O2SAT 95
[2017-02-18] MEDS: DIVALPROEX DR 500 MG TABEC PO SCH ×2 (09:18→20:18)
[2017-02-18] MEDS: ARIPiprazole 10 MG TAB PO SCH (09:18)
--- NOTE | 2017-02-18 12:05 | HHI.PYPN ---
Subjective Remarks Patient seen and examined with counselor and nurse. Chart reviewed. Case discussed with nursing staff reports the patient was able to ask for and received an injection of Geodon this morning for irritability to good effect. On my examination, the patient is calm and pleasant. She says that she asked for the injection because of "stiffness" but I can detect no signs of EPS or other antipsychotic associated movement disorders. Patient denies any suicidal or homicidal ideation. She denies any audiovisual hallucinations. Denies any side effects from medications. Remains hopeful for discharge to prison in short order. Review of Systems Except as stated in HPI: all other systems reviewed are Neg Objective Alert: Yes [place]: Person, Place Mood: Calm Affect: Blunted (remains somewhat blunted) Memory Intact: Comment (not formally assessed) Hallucinations: Other (denies AVH) Delusions: No Delusion Type: Other (no delusions) Suicidal: Ideation (denies SI) Homicidal: Ideation (denies HI) Insight/Judgment Fair to poor Remarks No abnormal motor movements noted. No hand tremor, no cogwheeling, no hypomimia , no dystonias or dyskinesias. Thought processes fairly linear. Grooming and hygiene fair. Labs Labs reviewed. No new labs. Vitals/IOs Vital Signs Date Time Temp Pulse Resp B/P Pulse Ox O2 Delivery O2 Flow Rate FiO2 02/18/17 06:33 97.5 74 20 122/68 95 Assessment & Plan Problem List: (1) Schizoaffective disorder, bipolar type ICD Code: F25.0 (2) Cocaine dependence ICD Code: F14.20 Assessment & Plan Titrate Abilify to 15 mg daily. To consider long-acting injectable Abilify. Continue other psychotropics as ordered. We will most likely request a Depakote level on an outpatient basis. Continue to monitor on the inpatient unit. Continue other medications and care as ordered. 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 Justification for Cont. Inpt. Medication changes in process. Discharge Planning residential placement once medication adjustment has been completed. Request HC Surrog/Guard Advoc?: Yes Problem Qualifiers (1) Cocaine dependence: Qualified Code: F14.20 - Cocaine dependence without complication Shankar Saravia MD Feb 18, 2017 12:05
[2017-02-18 18:45] VITALS: BP 104/57; PULSE 60; RESP 19; TEMP 98.8; O2SAT 97
[2017-02-19 06:08] VITALS: BP 119/59; PULSE 71; RESP 16; TEMP 97.6; O2SAT 95
[2017-02-19] MEDS ORDERED: ARIPiprazole 15 MG TAB PO SCH (09:00)
[2017-02-19] MEDS: DIVALPROEX DR 500 MG TABEC PO SCH (09:18)
[2017-02-19] MEDS ORDERED: DIVA500T PO (10:30)
[2017-02-19] MEDS ORDERED: ARIP1TAB13 PO (10:30)
--- NOTE | 2017-02-19 10:30 | HHI.DS ---
Psychiatry Discharge Summary Inpatient Psychiatric care?: Yes Advance Directive: No Reason Not Provided: Due to Patient Condition Mental Health AdvanceDirective: No Health Care Proxy: No Admission Admission Date Feb 11, 2017 at 15:51 Admission Diagnosis: (1) Schizoaffective disorder ICD Code: F25.9 (2) Cocaine dependence ICD Code: F14.20 Brief History Ms. Gilliland is a 31-year-old female with a history of schizoaffective disorder and cocaine use disorder who presented voluntarily to the emergency department with complaints of rectal bleeding but then refused examination. Patient was referred to the psychiatric nurse practitioner in the emergency department for psychiatric evaluation, and the nurse practitioner placed the patient under the Garcia act. Patient is well known to the psychiatric service here from multiple prior psychiatric admissions and ED visits. Reviewing the electronic medical record, I see the patient was admitted most recently under my care in June/July of last year, and she left AGAINST MEDICAL ADVICE at that time. Patient's urine toxicology is once again positive for cocaine on presentation here.Patient seen and examined with counselor. Chart reviewed. Case discussed with nursing staff who reports that the patient was acutely agitated yesterday requiring Zyprexa ETO. She remains agitated this morning. She can be heard screaming on the unit from the nursing station. On my evaluation, the patient presents as internally stimulated and psychomotor agitated. She screams that she wants to be sent to the [facility] hospital because she can smoke there. Her thought process is fairly disorganized. She says that she came into the hospital because she was "bleeding to " but refuses evaluation for this problem now. She says "I'm homeless on the [address] and I gotta go somewhere." She rambles about "a or a black kid." Affect is intensely dysphoric. It is difficult to discern underlying delusional material because of her degree of thought disorder at this time.'s psychiatric interview is limited because of her degree of psychotic decompensation at this time. Patient becomes increasingly agitated during the course of the interview and resumes screaming loudly I have ordered her medicated with Geodon, Ativan and Benadryl ETO. Tobacco Use In Past 30 Days: Refused To Answer Alcohol Use: 2-3 Times Per Week Hospital Course Patient was admitted to a locked, inpatient psychiatric unit. A general medical consultation was obtained. Appropriate precautions were in place throughout patient's hospital stay. Patient was seen and examined daily by psychiatry and also visited by counselor. Medications were adjusted. Patient was started on Abilify for the management of psychosis. I did recommend transitioning to a long-acting injectable Abilify, but the patient declined. Depakote was added for mood stabilization. Patient had improvement in her presenting psychiatric symptomatology during the course for hospital stay. There was no evidence of any suicidality or homicidality on the inpatient unit. Patient's behavior improved with the benefit of psychopharmacologic treatment. Patient was allowed to sign voluntary. On the day of discharge: Patient seen and examined with counselor. Chart reviewed. Case discussed with nursing staff reports patient has been a behavioral problem. On my examination today, the patient now says that she does not want correction placement and wishes to be discharged from the inpatient unit. Mood is stable. I can elicit no depressive or hypomanic/manic symptoms. She denies any suicidal or homicidal ideation, intent or plan. She denies any audiovisual hallucinations, and I can elicit no delusional beliefs. She denies any side effects from medications. She continues to decline long-acting injectable antipsychotic. She has no physical complaints. Weighing the acute, chronic, and protective factors and based on the available evidence, I car oiler to a reasonable degree of medical certainty that the patient is at low imminent risk of harm to self or others from a mental illness as defined under the Garcia act and her level of function is adequate for outpatient care. I have strongly recommended that she remain on the inpatient psychiatric unit to allow us to place her in some sort of structured living environment. I fear her prognosis otherwise is poor. She is declining to remain on the inpatient unit and given that I have no basis to retain her involuntarily at this time, I will discharge her today AGAINST MEDICAL ADVICE. Patient understands that she is leaving AGAINST MEDICAL ADVICE. Patient is to follow-up psychiatrically as arranged by counselor. Patient is also follow-up with primary care. Patient reminded to return to the psychiatric emergency room for any concerning psychiatric symptoms. Results Blood Pressure 119 / 59 Vital Signs Date Time Temp Pulse Resp B/P Pulse Ox O2 Delivery O2 Flow Rate FiO2 02/19/17 06:08 97.6 71 16 119/59 95 Item Value Date Time White Blood Count 4.1 TH/MM3 02/13/17 1731 Hemoglobin 12.8 GM/DL 02/13/17 1731 Platelet Count 218 TH/MM3 02/13/17 1731 Sodium Level 141 MEQ/L 02/10/17 2320 Potassium Level 3.5 MEQ/L 02/10/17 2320 Chloride Level 107 MEQ/L 02/10/17 2320 Carbon Dioxide Level 24.0 MEQ/L 02/10/17 2320 Blood Urea Nitrogen 8 MG/DL 02/10/17 2320 Creatinine 0.76 MG/DL 02/10/170 Random Glucose 99 MG/DL 02/10/17 2320 Aspartate Amino Transf (AST/SGOT) LESS THAN 3 U/L L 02/10/17 232 Alanine Aminotransferase (ALT/SGPT) 11 U/L 02/10/172319 Alkaline Phosphatase 88 U/L 02/10/172319 Urine Cocaine Screen POS H 02/10/172054 Ethyl Alcohol Level LESS THAN 3 MG/DL 02/10/172319 Summary of Procedures None done Imaging None done Pending results at discharge: No Medications # of Antipsychotic meds at D/C: 1 Approp Antipsych med options 1 - Minimum of three failed multiple trials of monotherapy. 2 - Documented plan to taper to monotherapy due to previous use of multiple meds OR cross-taper in progress at D/C. 3 - Documentation of augmentation of Clozapine. 4 - Justification other than those listed in allowable values 1-3, document here : Discharge Discharge Date: Feb 19, 2017 Discharge Diagnosis: (1) Schizoaffective disorder, bipolar type Diagnosis: Principal (stabilized) ICD Code: F25.0 (2) Cocaine dependence Diagnosis: Secondary (counseled to quit) ICD Code: F14.20 GAF on discharge is 50 Mental Status Exam at Disch Patient is casually dressed. She is well groomed. She is maintaining basic hygiene. She is awake and alert and oriented to person and hospital at least. No evidence of delirium. No motor abnormalities noted. Speech is within normal limits for rate, tone and volume. Language and fund of knowledge seem average. Mood is fair and affect is full and reactive. Thought process linear. No loosening of associations. No evident delusions. No audiovisual hallucinations. Denies suicidal or homicidal ideation, intent or plan. Insight and judgment are poor. Pt Condition on Discharge: Guarded (AGAINST MEDICAL ADVICE discharge) Discharge Disposition: Discharge Home Discharge Instructions Diet Instructions: As Tolerated, No Restrictions Activities you can perform: Weight Bearing as Sophia Scheduled Appointment: as per counselor's notes New Orders: AMMONIA - 2-3 Days DEPAKENE - 2-3 Days New Medications: Aripiprazole (Aripiprazole) 15 Mg Tab 15 MG PO DAILY Mental Health Days 15 Ref [address] (Divalproex DR) 500 Mg Tabdr 500 MG PO BID Mental Health Days 15 Ref 1 TAB Discontinued Medications: Quetiapine Fumarate (Quetiapine Fumarate) 200 Mg Tab 400 MG PO BID Mental Health Days 15 Ref 1 TAB Discharge Time <= 30 minutes Discharge/Advance Care Plan Health Problems: (1) Schizoaffective disorder, bipolar type (2) Cocaine dependence Goals to promote your health * To prevent worsening of your condition and complications * To maintain your health at the optimal level Directions to meet your goals Take your medications as prescribed Follow your dietary instruction Follow activity as directed Keep your appointments as scheduled Take your immunizations and boosters as scheduled If your symptoms worsen call your PCP, if no PCP go to Urgent Care Center or Emergency Room For 18/05 questions related to your inpatient stay or results of tests pending at discharge, please contact Dr. Shankar Saravia at Smoking is Dangerous to Your Health. Avoid second hand smoking Problem Qualifiers (1) Schizoaffective disorder: Qualified Code: F25.0 - Schizoaffective disorder, bipolar type (2) Cocaine dependence: Qualified Code: F14.20 - Cocaine dependence without complication Shankar Saravia MD Feb 19, 2017 10:30
--- NOTE | 2017-02-23 11:28 | HHI.PYPN ---
Subjective Remarks This is a psychiatric progress note for February 13, 2017. Patient remains very disorganized, highly agitated and unwilling to speak with this physician. She is noted to be very psychotic by staff. Review of Systems ROS Limitations: Clinical Condition Objective Alert: Yes [place]: Person Mood: Angry Affect: Labile, Blunted (remains somewhat blunted) Memory Intact: Comment (not formally assessed) Hallucinations: Other (denies AVH) Delusions: Yes Delusion Type: Paranoid, Other (no delusions) Suicidal: Ideation (denies SI) Homicidal: Ideation (denies HI) Insight/Judgment Markedly impaired Assessment & Plan Problem List: (1) Schizoaffective disorder, bipolar type ICD Code: F25.0 (2) Cocaine dependence ICD Code: F14.20 Assessment & Plan Estimated LOS: 3 days patient to be maintained on antipsychotic therapies for now. It is anticipated with medication management the patient will calm down and her thought process will become more organized. At this point no type of verbal therapeutic interaction appears to be meaningful. Justification for Cont. Inpt. Unable to care for herself in dangerous to self and others. Request HC Surrog/Guard Advoc?: Yes Problem Qualifiers (1) Cocaine dependence: Qualified Code: F14.20 - Cocaine dependence without complication Vincenzo Chapin MD February 23, 2017 11:28
== END 2017-02-19 13:35 | disposition left against medical advice (07) | DRG 885 ==
LOC: NEPD 20:01 → NEDA 02-11 15:51 → H270 02-11 16:53
PROVIDERS: ADMIT Psychiatry & Neurology Psychiatry; ATTEND Psychiatry & Neurology Psychiatry
DX: F25.0 Schizoaffective disorder, bipolar type (principal); F14.20 Cocaine dependence, uncomplicated; N39.0 Urinary tract infection, site not specified; F41.9 Anxiety disorder, unspecified; K21.9 Gastro-esophageal reflux disease without esophagitis
CPT/HCPCS: 80053; 80307; 81001; 84703; 85025; 87077; 87086; 87186; 99284; J1200; J2060; J3486

== ENCOUNTER 2017-03-09 04:12 | Inpatient (IN) | payer MEDICARE, OTHER ==
[~2017-03-09] VITALS: Ht 157.5 cm; Wt 75.8 kg
[~2017-03-09 04:12] MED LIST changes: +ARIP1TAB13 PO; +DIVA500T PO; -QUET200 PO
[2017-03-09 04:23] VITALS: BP 105/64; PULSE 60; RESP 16; TEMP 97.9; O2SAT 100
[2017-03-09 05:10] LABS: AUTOMATED NEUTROPHIL # 3.6 TH/MM3 (1.8-7.7); BASOPHIL % 0.3 % (0.0-2.0); EOSINOPHIL # 0.1 TH/MM3 (0-0.4); EOSINOPHIL % 2.1 % (0.0-4.0); HEMATOCRIT 39.5 % (35.0-46.0); HEMO FLAGS DIFF FINAL; LYMPH % 36.5 % (9.0-44.0); LYMPHOCYTE # 2.5 TH/MM3 (1.0-4.8); MEAN CELL VOLUME 86.7 FL (80.0-100.0); MEAN CORPUSCULAR HEMOGLOBIN 29.3 PG (27.0-34.0); MEAN CORPUSCULAR HGB CONC 33.8 % (32.0-36.0); MONO % 8.7 % (0.0-8.0); NEUT % 52.4 % (16.0-70.0); PLATELET COUNT 212 TH/MM3 (150-450); RED BLOOD COUNT 4.55 MIL/MM3 (4.00-5.30); RED CELL DISTRIBUTION WIDTH 14.2 % (11.6-17.2); WHITE BLOOD COUNT 6.9 TH/MM3 (4.0-11.0)
[2017-03-09 05:11] LABS: ALT (GPT) 17 U/L (10-53); ANION GAP 6 MEQ/L (5-15); AST (GOT) 10 U/L (15-37); BLOOD UREA NITROGEN 17 MG/DL (7-18); CHLORIDE 110 MEQ/L (98-107); GLOMERULAR FILTRATION RATE 81 ML/MIN (>89); POTASSIUM 4.1 MEQ/L (3.5-5.1); SODIUM (NA) 141 MEQ/L (136-145)
[2017-03-09 05:13] LABS: ACETAMINOPHEN LESS THAN 2.0 MCG/ML (10.0-30.0); ALKALINE PHOSPHATASE 93 U/L (45-117); TOTAL BILIRUBIN ADULT 0.4 MG/DL (0.2-1.0)
--- NOTE | 2017-03-09 05:18 | PD ---
HPI Chief Complaint: Psychiatric Symptoms Time Seen by Provider: 05:16 Travel History International Travel<30 days: No Contact w/Intl Traveler<30days: No Traveled to known affect area: No History of Present Illness HPI 31-year-old white female presents to emergency department under Garcia act by PD. This is a patient who had been seen here in the emergency department in the last month. Patient is refusing to answer questions. No meaningful history is obtainable from this patient. The patient does shake her head no when I ask her if she is suicidal or homicidal. She does shake her head yes when I ask her if she is using illegal substances. PFSH Past Medical History Hx Anticoagulant Therapy: No ADHD: Yes Autoimmune Disease: No Bipolar Disorder: Yes Anxiety: Yes Depression: Yes Chemotherapy: No Cerebrovascular Accident: No Diminished Hearing: No Endocrine: No Gastrointestinal Disorders: Yes GERD: Yes Genitourinary: Yes Immune Disorder: No Implanted Vascular Access Dvce: No Musculoskeletal: No Neurologic: No Psychiatric: Yes (Extensive hx of treatment for Schizoaffective Disorder) Reproductive: No Respiratory: No Immunizations Current: No Schizophrenia: Yes Tetanus Vaccination: Unknown PNEUMOCCOCAL Vaccine (Year): 2 ?: Unknown Menopausal: No : 3 Para: 3 Past Surgical History Surgical History: Unable to Obtain Section: Yes (1) Gynecologic Surgery: Yes (C-SEC) Hysterectomy: No Social History Alcohol Use: No Tobacco Use: No Substance Use: Yes Allergies-Medications (Allergen,Severity, Reaction): Coded Allergies: Haldol (Verified Allergy, Severe, TONGUE SWELLS,DIFFICULTY SWALLOWING,JAW LOCKS, 03/09/17) Lamictal (Verified Allergy, Severe, 03/09/17) Paxil (Verified Allergy, Severe, 03/09/17) Reported Meds & Prescriptions Reported Meds & Active Scripts Active Divalproex DR (Divalproex Sodium) 500 Mg Tabdr 500 Mg PO BID 15 Days Aripiprazole 15 Mg Tab 15 Mg PO DAILY 15 Days Review of Systems ROS Limitations: Uncooperative Except as stated in HPI: all other systems reviewed are Neg Physical Exam Narrative GENERAL: Well-nourished, well-developed patient. SKIN: Warm and dry. HEAD: Normocephalic and atraumatic. EYES: No scleral icterus. No injection or drainage. ENT: No nasal drainage noted. Mucous membranes pink. Airway patent. NECK: Supple, trachea midline. Moves head freely without obvious discomfort. CARDIOVASCULAR: Regular rate and rhythm without murmurs, gallops, or rubs. RESPIRATORY: Breath sounds equal bilaterally. No accessory muscle use. GASTROINTESTINAL: Abdomen soft, non-tender, nondistended. EXTREMITIES: No cyanosis or edema. BACK: Nontender without obvious deformity. No CVA tenderness. NEURO: Patient is alert and oriented. no sensorimotor deficits. Nonfocal. Patient refusing to speak. Data Data Last Documented VS Vital Signs Date Time Temp Pulse Resp B/P Pulse Ox O2 Delivery O2 Flow Rate FiO2 03/09/17 04:23 97.9 60 16 105/64 100 Orders Complete Blood Count With Diff (03/09/17 04:31) Comprehensive Metabolic Panel (03/09/17 04:31) Urinalysis - C+S If Indicated (03/09/17 04:31) Ed Urine Pregnancytest Poc (03/09/17 04:31) Psych Screen (03/09/17 04:31) Drug Screen, Random Urine (03/09/17 04:31) Alcohol (Ethanol) (03/09/17 04:31) Salicylates (Aspirin) (03/09/17 04:31) Tylenol (Acetaminophen) (03/09/17 04:31) Valproic Acid (Depakene) (03/09/17 04:45) Labs Laboratory Tests Test 03/09/17 04:45 White Blood Count 6.9 TH/MM3 Red Blood Count 4.55 MIL/MM3 Hemoglobin 13.4 GM/DL Hematocrit 39.5 % Mean Corpuscular Volume 86.7 FL Mean Corpuscular Hemoglobin 29.3 PG Mean Corpuscular Hemoglobin 33.8 % Concent Red Cell Distribution Width 14.2 % Platelet Count 212 TH/MM3 Mean Platelet Volume 8.1 FL Neutrophils (%) (Auto) 52.4 % Lymphocytes (%) (Auto) 36.5 % Monocytes (%) (Auto) 8.7 % Eosinophils (%) (Auto) 2.1 % Basophils (%) (Auto) 0.3 % Neutrophils # (Auto) 3.6 TH/MM3 Lymphocytes # (Auto) 2.5 TH/MM3 Monocytes # (Auto) 0.6 TH/MM3 Eosinophils # (Auto) 0.1 TH/MM3 Basophils # (Auto) 0.0 TH/MM3 CBC Comment DIFF FINAL Differential Comment Sodium Level 141 MEQ/L Potassium Level 4.1 MEQ/L Chloride Level 110 MEQ/L Carbon Dioxide Level 25.0 MEQ/L Anion Gap 6 MEQ/L Blood Urea Nitrogen 17 MG/DL Creatinine 0.83 MG/DL Estimat Glomerular Filtration 81 ML/MIN Rate Random Glucose 98 MG/DL Calcium Level 8.8 MG/DL Total Bilirubin 0.4 MG/DL Aspartate Amino Transf 10 U/L (AST/SGOT) Alanine Aminotransferase 17 U/L (ALT/SGPT) Alkaline Phosphatase 93 U/L Total Protein 6.7 GM/DL Albumin 3.5 GM/DL Salicylates Level 3.1 MG/DL Acetaminophen Level LESS THAN 2.0 MCG/ML Valproic Acid (Depakene) Level LESS THAN 3 MCG/ML Ethyl Alcohol Level LESS THAN 3 MG/DL [facility] Medical Decision Making Medical Screen Exam Complete: Yes Emergency Medical Condition: Yes Medical Record Reviewed: Yes Interpretation(s) Laboratory Tests Test 03/09/17 04:45 White Blood Count 6.9 TH/MM3 Red Blood Count 4.55 MIL/MM3 Hemoglobin 13.4 GM/DL Hematocrit 39.5 % Mean Corpuscular Volume 86.7 FL Mean Corpuscular Hemoglobin 29.3 PG Mean Corpuscular Hemoglobin 33.8 % Concent Red Cell Distribution Width 14.2 % Platelet Count 212 TH/MM3 Mean Platelet Volume 8.1 FL Neutrophils (%) (Auto) 52.4 % Lymphocytes (%) (Auto) 36.5 % Monocytes (%) (Auto) 8.7 % Eosinophils (%) (Auto) 2.1 % Basophils (%) (Auto) 0.3 % Neutrophils # (Auto) 3.6 TH/MM3 Lymphocytes # (Auto) 2.5 TH/MM3 Monocytes # (Auto) 0.6 TH/MM3 Eosinophils # (Auto) 0.1 TH/MM3 Basophils # (Auto) 0.0 TH/MM3 CBC Comment DIFF FINAL Differential Comment Sodium Level 141 MEQ/L Potassium Level 4.1 MEQ/L Chloride Level 110 MEQ/L Carbon Dioxide Level 25.0 MEQ/L Anion Gap 6 MEQ/L Blood Urea Nitrogen 17 MG/DL Creatinine 0.83 MG/DL Estimat Glomerular Filtration 81 ML/MIN Rate Random Glucose 98 MG/DL Calcium Level 8.8 MG/DL Total Bilirubin 0.4 MG/DL Aspartate Amino Transf 10 U/L (AST/SGOT) Alanine Aminotransferase 17 U/L (ALT/SGPT) Alkaline Phosphatase 93 U/L Total Protein 6.7 GM/DL Albumin 3.5 GM/DL Salicylates Level 3.1 MG/DL Acetaminophen Level LESS THAN 2.0 MCG/ML Valproic Acid (Depakene) Level LESS THAN 3 MCG/ML Ethyl Alcohol Level LESS THAN 3 MG/DL Differential Diagnosis MDM: High Differential diagnoses: Schizophrenia, schizoaffective disorder, bipolar, anxiety, depression, adjustment reaction, mood disorder NOS, ODD, depressive disorder NOS, dementia, dementia with agitation, psychosis NOS, substance induced mood disorder, intermittent explosive disorder, Asperger syndrome, infection,electrolyte abnormality, malingering. Narrative Course Mental health screening discussed with the patient. Psychiatric screen ordered. The patient's been medically cleared. This is medical clearance Diagnosis Primary Impression: Medical clearance for psychiatric admission Condition: Moris Gillette March 09, 2017 05:18
[2017-03-09 07:23] VITALS: BP 99/54; PULSE 66; RESP 18; O2SAT 97
[2017-03-09 07:48] LABS: AMPHETAMINE, URINE NEG (NEG); BACTERIA, URINE OCC /hpf; BARBITURATES, URINE NEG (NEG); BLOOD, URINE NEG (NEG); COCAINE, URINE POS (NEG); GLUCOSE,URINE NEG (NEG); HYALINE CAST, URINE 1 /lpf (RARE); KETONE, URINE NEG (NEG); MUCUS URINE MANY /lpf (OCC); NITRITE,URINE NEG (NEG); PH, URINE 5.5 (5.0-8.5); SQUAMOUS EPITHELIAL CELL URINE 6 /hpf (0-5); TRANSITIONAL EPI CELLS, URINE <1 /hpf; URINE COLOR YELLOW (YELLW/STRAW)
[2017-03-09 07:49] LABS: COMMENT (UR) CULTURE INDICATED; CULTURE IF INDICATED CULTURE INDICATED
[2017-03-09] MEDS: CEPHALEXIN MONOHYDRATE 500 MG CAP PO SCH ×2 (08:39→21:29)
[2017-03-09 08:41] VITALS: BP 115/53; PULSE 60; RESP 18; TEMP 98.3; O2SAT 95
[2017-03-09 14:58] VITALS: BP 98/52; PULSE 56; RESP 18
[2017-03-09] MEDS ORDERED: ALUMINUM/MAGNESIUM/SIMETH 30 ML CUP PO PRN (21:45)
[2017-03-09] MEDS ORDERED: BENZTROPINE MESYLATE 2 MG/2 ML VIAL IM PRN (21:45)
[2017-03-09] MEDS ORDERED: LORazepam 1 MG TAB PO PRN (21:45)
[2017-03-09] MEDS ORDERED: hydrOXYzine HCL 50 MG TAB PO PRN (21:45)
[2017-03-09] MEDS ORDERED: diphenhydrAMINE HCL 50 MG/ML VIAL - HS PRN IM (21:45)
[2017-03-09] MEDS ORDERED: ACETAMINOPHEN 325 MG TAB PO PRN (21:45)
[2017-03-09] MEDS ORDERED: diphenhydrAMINE HCL 50 MG CAP - HS PRN PO (21:45)
[2017-03-09] MEDS ORDERED: MAGNESIUM HYDROXIDE SUSP 30 ML CUP PO PRN (21:45)
[2017-03-09] MEDS ORDERED: BENZTROPINE MESYLATE 1 MG TAB PO PRN (21:45)
[2017-03-09] MEDS ORDERED: traZODone HCL 50 MG TAB PO PRN (21:45)
[2017-03-09] MEDS ORDERED: LORazepam 2 MG/ML VIAL IM PRN (21:45)
[2017-03-09] MEDS ORDERED: diphenhydrAMINE HCL 50 MG/ML VIAL IM PRN (21:45)
[2017-03-09] MEDS ORDERED: diphenhydrAMINE HCL 50 MG CAP PO PRN (22:00)
[2017-03-09 22:39] VITALS: BP 111/57; PULSE 85; RESP 16; TEMP 98.3; O2SAT 95
[2017-03-10 06:07] VITALS: BP 107/55; PULSE 53; RESP 18; TEMP 97.3; O2SAT 96
[2017-03-10] MEDS: DIVALPROEX DR 500 MG TABEC PO SCH ×2 (09:00→21:00)
[2017-03-10] MEDS: ARIPiprazole 15 MG TAB PO SCH (09:44)
[2017-03-10] MEDS: CEPHALEXIN MONOHYDRATE 500 MG CAP PO SCH ×2 (09:44→21:00)
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
[2017-03-10 20:37] VITALS: BP 96/54; PULSE 63; RESP 18; TEMP 97.7; O2SAT 96
[2017-03-11] MEDS ORDERED: BENZ1TAB PO (08:51)
[2017-03-11] MEDS ORDERED: ARIP1TAB13 PO (08:54)
[2017-03-11] MEDS ORDERED: DIVA500T PO (08:55)
[2017-03-11] MEDS: DIVALPROEX DR 500 MG TABEC PO SCH (09:50)
[2017-03-11] MEDS: CEPHALEXIN MONOHYDRATE 500 MG CAP PO SCH (09:50)
[2017-03-11] MEDS: ARIPiprazole 15 MG TAB PO SCH (09:50)
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
== END 2017-03-11 13:05 | disposition home or self-care (01) | DRG 885 ==
LOC: NEPD 04:12 → NEDA 21:27 → H270 22:30
PROVIDERS: ADMIT Psychiatry & Neurology Psychiatry; ATTEND Psychiatry & Neurology Psychiatry
DX: F25.0 Schizoaffective disorder, bipolar type (principal); Z91.14 Patient's other noncompliance with medication regimen; F14.229 Cocaine dependence with intoxication, unspecified; Z59.0 Homelessness
CPT/HCPCS: 80053; 80164; 80307; 81001; 84703; 85025; 87086; 99285; Q0163